=== PATIENT | male | born 1950 | race Caucasian/White ===

== ENCOUNTER 2021-04-02 02:59 | Emergency (ER) | payer MEDICARE, BC ==
[~2021-04-02] VITALS: Ht 190.5 cm; Wt 154.2 kg
--- NOTE | 2021-04-02 03:10 | NUR ---
PATIENT BIBRA FROM HOME FOR EVALUATION OF S/P AT HOME FALL DUE TO HIS KNEES GIVING AWAY. PATIENT STATED NO PAIN AT THIS TIME. PATIENT - KO. PATIENT IS A/O X 4, RR EVEN AND UNLABORED, NO SIGNS OF SOB NOTED. PATIENT CONNECTED TO CARDIAC AND POX MONITOR.
--- NOTE | 2021-04-02 03:35 | NUR ---
PATIENT TAKEN TO CT
[2021-04-02] MEDS ORDERED: TDAP [DIPH/PERTUSSIS/TET] 0.5 ML VIAL IM ONE ×2 (03:37→04:00)
--- NOTE | 2021-04-02 04:15 | NUR ---
PAULETTE, FRIEND: [phone] SISTER, JAMES GREGG [phone]
--- NOTE | 2021-04-02 04:50 | NUR ---
PATIENT AMBULATE TO RESTROOM WITH CANE AND SAND BY ASSIST. PATIENT RETURNED TO BED. PATIENT NOTED WITH NO ACUTE DISTRESS.
[2021-04-02] MEDS ORDERED: NYST15OI TP (05:21)
--- NOTE | 2021-04-02 05:35 | NUR ---
PT IS MEDICALLY STABLE FOR D/C. PT WAS PROVIDED W/ A WALKER FOR SAFE AMBULATION.. SISTER AND FRIEND AT BED SIDE TO TAKE THE PT HOME. Patient discharged to home in stable condition. Written and verbal after care instructions given. Rx and Patient verbalizes understanding of instruction.
[2021-04-02 05:38] VITALS: BP 141/82
== END 2021-04-02 05:39 | disposition home or self-care (01) ==
LOC: ER 03:01
DX: S01.01XA Laceration without foreign body of scalp, initial encounter (principal); S80.212A Abrasion, left knee, initial encounter; S80.211A Abrasion, right knee, initial encounter; S09.8XXA Other specified injuries of head, initial encounter; B36.0 Pityriasis versicolor; R51.9 Headache, unspecified; J45.909 Unspecified asthma, uncomplicated; Z60.2 Problems related to living alone; Z79.899 Other long term (current) drug therapy; W18.39XA Other fall on same level, initial encounter; Y93.89 Activity, other specified; Y92.89 Other specified places as the place of occurrence of the external cause; Y99.8 Other external cause status
CPT/HCPCS: 70450; 90471; 90715; 99284; A6403

== ENCOUNTER 2021-04-06 11:38 | Emergency (ER) | payer MEDICARE, BC ==
[~2021-04-06] VITALS: Ht 190.5 cm; Wt 155.1 kg
[~2021-04-06 11:38] MED LIST: NYST15OI TP
--- NOTE | 2021-04-06 11:40 | NUR ---
BIB RA 88 FROM HOME, UNABLE TO GET UP AFTER HE SLID DOWN FROM HIS RECLINING CHAIR. PATIENT A/OX4, BREATHING EVEN AND UNLABORED, NO SOB NOTED. PATIENT IS A GOOD HISTORIAN, STATED HE'S HAD MULTIPLE FALLS WITHIN THE LAST FEW WEEKS. PATIENT IS C/O WEAKNESS. DR. GONCALVES AT BEDSIDE FOR EVAL.
[2021-04-06] MEDS ORDERED: ALBU18HF2 IH (12:08)
[2021-04-06] MEDS ORDERED: IBUP-23 PO (12:08)
--- NOTE | 2021-04-06 12:15 | NUR ---
IV LINE ESTABLISHED, BLOOD DRAWN AND SENT TO LAB. COVID SWAB SENT. URINAL PROVIDED UNABLET TO GIVE URINE AT THIS TIME.
[2021-04-06 12:21] LABS: BASOPHILS % (AUTO) 0.8 % (0.0-2.0); EOSINOPHILS % (AUTO) 4.2 % (0.0-6.0); HEMATOCRIT 45 % (39-51); LYMPHOCYTES # (AUTO) 0.7 K/uL (0.8-4.8); LYMPHOCYTES % (AUTO) 13.5 % (20.0-44.0); MEAN CORPUSCULAR HGB CONC 34 g/dl (31.0-36.0); MEAN CORPUSCULAR VOLUME 90 fL (80-96); MONOCYTES # (AUTO) 0.7 K/uL (0.1-1.30); MONOCYTES % (AUTO) 14.1 % (2.0-12.0); NEUTROPHILS # (AUTO) 3.4 K/uL (1.8-8.9); NEUTROPHILS % (AUTO) 67.4 % (43.0-81.0); PLATELET COUNT (AUTO) 150 K/uL (150-450); RED BLOOD CELL COUNT(AUTO) 4.98 MIL/uL (4.5-6.0); WHITE BLOOD COUNT (AUTO) 5.1 K/uL (4.3-11.0)
--- NOTE | 2021-04-06 12:32 | NUR ---
SISTER AT BEDSIDE.
[2021-04-06 12:48] LABS: ALBUMIN 3.1 g/dL (3.4-5.0); BILIRUBIN,DIRECT 0.3 mg/dL (0.0-0.2); BILIRUBIN,TOTAL 1.7 mg/dL (0.2-1.0); CALCIUM, SERUM 8.7 mg/dL (8.5-10.1); CREATININE 1.3 mg/dL (0.6-1.3); POTASSIUM 4.2 mmol/L (3.5-5.1); TOTAL PROTEIN, SERUM 6.9 g/dL (6.4-8.2)
--- NOTE | 2021-04-06 13:00 | NUR ---
PATIENT CAME BACK FROM CT/.
--- NOTE | 2021-04-06 13:39 | NUR ---
DR. PRICE MADE AWARE OF HIGH BP READINGS.
--- NOTE | 2021-04-06 13:42 | NUR ---
RECEIVED ORDER FROM DR. PRICE TO START NORVASC 10MG PO NOW.
--- NOTE | 2021-04-06 13:43 | NUR ---
RECEIVED ORDER FROM DR. PRICE TO GIVE NORVASC 10MG PO X1 NOW AND THEN DAILY.
[2021-04-06 13:46] LABS: BILIRUBIN,URINE SMALL (NEGATIVE); COLOR,URINE YELLOW (YELLOW); LEUKOCYTE ESTERASE ,URINE Negative (NEGATIVE); NITRITE, URINE Negative (NEGATIVE); PROTEIN,URINE Trace mg/dl (NEGATIVE); UGLUCOSE Negative (NEGATIVE); UROBILINOGEN,URINE 0.2 EU/dL (0.2)
[2021-04-06] MEDS ORDERED: AMLODIPINE BESYLATE 10 MG TABLET ONE (13:47)
--- NOTE | 2021-04-06 13:53 | NUR ---
JALEEL MANUEL [facility] FAXED CLINICALS TO [phone]
--- NOTE | 2021-04-06 13:55 | NUR ---
FOR PT TO GO TO SNF
[2021-04-06] MEDS ORDERED: AMLODIPINE BESYLATE 5 MG TABLET PO ONE (14:00)
[2021-04-06 14:07] LABS: BACTERIA,URINE Few /HPF (None Seen); SQUAMOUS EPITHELIAL CELL,UR Few /HPF (None Seen)
--- NOTE | 2021-04-06 14:22 | NUR ---
[facility]A number for report [phone]. Will call back for delivery of bariatric bed at the snf then will call for transportation.
--- NOTE | 2021-04-06 14:44 | NUR ---
REPORT GIVEN TO ENA DRUMMOND AT [facility] .
--- NOTE | 2021-04-06 16:59 | NUR ---
SPOKE TO JALEEL LAGUNAS CM FOR UPDATE, PER JENNIFER, SHE'S HAVING TROUBLE FINDING A VENDOR FOR A BARIATRIC BED DUE TO INSURANCE.
--- NOTE | 2021-04-06 17:00 | NUR ---
PATIENT RESTING, HAD A BM. PERICARE PROVIDED.
--- NOTE | 2021-04-06 19:30 | NUR ---
REPORT GIVEN TO ARON DRUMMOND.
--- NOTE | 2021-04-06 19:47 | NUR ---
JALEEL STATED BARIATRIC BED WILL BE DELIVERED AT THE FACILITY AND TRANSPORTATION WILL BE SET UP ONCE ITS DELIVERED.
--- NOTE | 2021-04-06 20:04 | NUR ---
PT ACCEPTED [facility] [address] GONZALES. # FOR REPORT [phone]. ETA ROYALTY [phone]
--- NOTE | 2021-04-06 22:56 | NUR ---
FAXED THE LATED LAB RESULTS TO [phone] INCLUDING THE NEGATIVE COVID 19 ANTIGEN RESULTS
--- NOTE | 2021-04-06 22:57 | NUR ---
ACCEPTED BY ZACK MANE ([phone])- TRIED TO CALL [phone] - NO ANSWER
[2021-04-06] MEDS ORDERED: CLONIDINE HCL 0.1 MG TABLET ONE (23:00)
[2021-04-06] MEDS ORDERED: CLONIDINE HCL 0.1 MG TABLET PO ONE (23:00)
--- NOTE | 2021-04-06 23:11 | NUR ---
REPORT GIVEN TO BHANU WHELAN FOR HARRY AT THE [facility]
--- NOTE | 2021-04-06 23:40 | NUR ---
[facility] AT BEDSIDE FOR PT TRANSPORT TO [facility]. REPORT GIVEN TO EMT. PT IS IS STABLE CONDITION.
[2021-04-07 01:09] VITALS: BP 160/80
--- NOTE | 2021-04-07 01:12 | NUR ---
PT LEFT ON GURNEY WITH 2 AMBULANCE STAFF. PT IS IN STABLE CONDITION FOR TRANSPORT. NAD NOTED
== END 2021-04-07 01:09 ==
LOC: ER 11:42
DX: R53.1 Weakness (principal); Z20.822 Contact with and (suspected) exposure to COVID-19; J45.909 Unspecified asthma, uncomplicated; Z88.6 Allergy status to analgesic agent; R94.31 Abnormal electrocardiogram [ECG] [EKG]; R29.6 Repeated falls
CPT/HCPCS: 36415; 70450-TC; 71045-TC; 80048-TC; 80076-TC; 81001; 83605-TC; 84484-TC; 85025-TC; 85730-TC; 87040-TC; 87081-TC; 87086-TC; C9803; G0480